=== PATIENT | female | born 1995 | race Caucasian/White ===

== ENCOUNTER 2017-08-03 09:08 | Emergency (ER) | payer OTHER ==
[~2017-08-03] VITALS: Ht 154.9 cm; Wt 49.9 kg
== END 2017-08-03 09:45 | disposition home or self-care (01) ==
LOC: ED 09:08
DX: Z00.8 Encounter for other general examination (principal)

== ENCOUNTER 2018-01-08 09:25 | Emergency (ER) | payer OTHER ==
[~2018-01-08] VITALS: Ht 154.9 cm; Wt 49.9 kg
--- OUTSIDE RECORDS SUMMARY | ~2018-01-08 | XMS ---
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 | Phone | + + + + Unavailable | Unavailable | + + + + PROBLEMS Unknown Problems ALLERGIES No Known Allergies SOCIAL HISTORY Never Assessed PLAN OF CARE + +---------+ | Activity | Details | + +---------+ +---+ | | +---+ + + + | Follow Up | as scheduled with PCP Reason:null | + + + | Pending Test | X ray : Hand AP/L/O (3+views)- RT | + + + VITAL SIGNS + + + + | Height | 62 in | 2017-08-03 | + + + + | Weight | 112.4 lbs | 2017-08-03 | + + + + | BMI | 20.56 kg/m2 | 2017-08-03 | + + + + | Temperature | 98.2 degrees Fahrenheit | 2017-08-03 | + + + + | Heart Rate | 81 /min | 2017-08-03 | + + + + | Blood pressure systolic | 127 mm Hg | 2017-08-03 | + + + + | Blood pressure diastolic | 58 mm Hg | 2017-08-03 | + + + + MEDICATIONS + + + + + + + +--------+ | Medicati | Instruct | Dosage | Frequenc | Start | End Date | Duration | Status | | on | ions | | y | Date | | | | + + + + + + + +--------+ | Ibuprofe | Orally | 1 tablet | 8h | 08 Sep, | 18 Sep, | 10 | Active | | n 800 MG | Three | | | 2017 | 2017 | day(s) | | | | times a | | | | | | | | | day | | | | | | | + + + + + + + +--------+ RESULTS No Results PROCEDURES No Known procedures IMMUNIZATIONS No Known Immunizations"
== END 2018-01-08 10:59 | disposition home or self-care (01) ==
LOC: ED 09:25
DX: R20.0 Anesthesia of skin (principal); M79.641 Pain in right hand

== ENCOUNTER 2020-02-16 09:05 | Emergency (ER) | payer OTHER ==
[~2020-02-16] VITALS: Ht 154.9 cm; Wt 59.0 kg
--- OUTSIDE RECORDS SUMMARY | 2020-02-16 09:08 | XMS ---
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 Ciera has no Care Guidelines for this patient. [facility] VISIT COUNT (12 MO.) 1 DEB [facility] TOTAL 1 NOTE: Visits indicate total known visits. ED/C VISIT TRACKING (12 MO.) 02/16/2020 09:06 [facility] [place] TYPE: Emergency COMPLAINT: - TAILBONE PAIN 07/10/2019 08:16 [facility] TYPE: [facility]gent Care DIAGNOSES: - Eye Problem - Hordeolum externum left lower eyelid INPATIENT VISIT TRACKING (12 MO.) No inpatient visits to display in this time frame [email or web address]
== END 2020-02-16 10:10 | disposition home or self-care (01) ==
LOC: ED 09:05
DX: S30.0XXA Contusion of lower back and pelvis, initial encounter (principal); F17.200 Nicotine dependence, unspecified, uncomplicated; X58.XXXA Exposure to other specified factors, initial encounter
CPT/HCPCS: 99283